=== PATIENT | female | born 1985 | race African-American/Black ===

== ENCOUNTER 2016-08-24 14:00 | Emergency (ER) | payer SELFPAY ==
[~2016-08-24 14:00] MED LIST: HYDR25TA PO
== END 2016-08-24 16:04 | disposition left against medical advice (07) ==
LOC: EMS 14:00
DX: M79.671 Pain in right foot (principal); Z53.21 Procedure and treatment not carried out due to patient leaving prior to being seen by health care provider

== ENCOUNTER 2016-08-24 22:48 | Emergency (ER) | payer SELFPAY ==
[~2016-08-24] VITALS: Ht 162.6 cm; Wt 87.3 kg
[2016-08-25] MEDS ORDERED: IBUPROFEN 600 MG TABLET PO ONE (00:15)
[2016-08-25] MEDS ORDERED: ACETAMINOPHEN/CODEINE 300-30 MG TABLET PO ONE (00:15)
[2016-08-25 00:22] VITALS: BP 124/89
== END 2016-08-25 00:30 | disposition home or self-care (01) ==
LOC: EMS 22:49
DX: S93.402A Sprain of unspecified ligament of left ankle, initial encounter (principal); I10 Essential (primary) hypertension; Z88.2 Allergy status to sulfonamides; W50.2XXA Accidental twist by another person, initial encounter; Y93.89 Activity, other specified; Y92.89 Other specified places as the place of occurrence of the external cause; Y99.8 Other external cause status
CPT/HCPCS: 29540; 99284

== ENCOUNTER 2018-09-25 00:31 | Emergency (ER) | payer MEDICAID ==
[~2018-09-25] VITALS: Ht 165.1 cm; Wt 90.9 kg
[2018-09-25] MEDS ORDERED: KETOROLAC TROMETHAMINE 60 MG/2 ML VIAL IM ONE (01:30)
[2018-09-25 02:52] VITALS: BP 145/67
== END 2018-09-25 02:54 | disposition home or self-care (01) ==
LOC: EMS 00:34
DX: S03.42XA Sprain of jaw, left side, initial encounter (principal); S20.211A Contusion of right front wall of thorax, initial encounter; I10 Essential (primary) hypertension; F17.210 Nicotine dependence, cigarettes, uncomplicated; F12.90 Cannabis use, unspecified, uncomplicated; Z88.2 Allergy status to sulfonamides; Y04.0XXA Assault by unarmed brawl or fight, initial encounter; Y93.89 Activity, other specified; Y92.89 Other specified places as the place of occurrence of the external cause; Y99.8 Other external cause status
CPT/HCPCS: 70450; 70486; 71101; 81025; 96372; 99284; J1885

== ENCOUNTER 2018-12-03 04:12 | Emergency (ER) | payer MEDICAID ==
[~2018-12-03] VITALS: Ht 165.1 cm; Wt 95.5 kg
[2018-12-03 04:23] VITALS: BP 150/82
== END 2018-12-03 06:03 | disposition left against medical advice (07) ==
LOC: EMS 04:13
DX: H53.8 Other visual disturbances (principal); Z53.21 Procedure and treatment not carried out due to patient leaving prior to being seen by health care provider

== ENCOUNTER 2019-03-15 22:47 | Emergency (ER) | payer SELFPAY ==
[~2019-03-15] VITALS: Ht 165.1 cm; Wt 95.9 kg
[2019-03-16] MEDS ORDERED: PredniSONE 20 MG TABLET PO ONE (00:15)
[2019-03-16] MEDS ORDERED: AZITHROMYCIN 250 MG TABLET PO ONE (00:15)
[2019-03-16] MEDS ORDERED: IPRATROPIUM BROMIDE 0.5 MG/2.5 ML NEB SOLUTION NEB ONE (00:15)
[2019-03-16] MEDS ORDERED: ALBUTEROL SULFATE 2.5 MG/0.5 ML NEB SOLUTION NEB ONE (00:15)
[2019-03-16] MEDS ORDERED: ALBUTEROL SULFATE 5 MG/ML 20 ML NEB SOLN [BULK] NEB ONE (01:15)
[2019-03-16] MEDS ORDERED: 0.9% SODIUM CHLORIDE 15 ML NEB SOLUTION NEB ONE (01:32)
[2019-03-16] MEDS ORDERED: CloNIDine HCL 0.2 MG TABLET PO ONE (02:00)
[2019-03-16 02:26] VITALS: BP 144/93
== END 2019-03-16 02:32 | disposition home or self-care (01) ==
LOC: EMS 22:49
DX: J98.01 Acute bronchospasm (principal); F41.9 Anxiety disorder, unspecified; F32.9 Major depressive disorder, single episode, unspecified; I10 Essential (primary) hypertension; F17.210 Nicotine dependence, cigarettes, uncomplicated; F12.90 Cannabis use, unspecified, uncomplicated; Z88.1 Allergy status to other antibiotic agents
CPT/HCPCS: 94640; 94644; 99285; J7512

== ENCOUNTER 2020-06-23 13:43 | Emergency (ER) | payer MEDICAID ==
[~2020-06-23] VITALS: Ht 167.6 cm; Wt 95.5 kg
[2020-06-23] MEDS ORDERED: LISI-894 PO (13:49)
[2020-06-23] MEDS ORDERED: ONDANSETRON HCL 4 MG/2 ML VIAL IVP ONE ×2 (14:45)
[2020-06-23] MEDS ORDERED: SODIUM CHLORIDE 0.9% 1,000 ML IV ONE (14:45)
[2020-06-23] MEDS ORDERED: MORPHINE SULFATE 4 MG/ML SYRINGE IVP ONE (14:45)
[2020-06-23 15:31] LABS: BASOPHILS % (AUTO) 0.9 % (0.0-2.0); EOSINOPHILS % (AUTO) 2.7 % (1.0-6.0); HEMOGLOBIN 8.3 g/dL (12.0-16.0); LYMPHOCYTES # (AUTO) 1.4 K/uL (1.0-4.8); LYMPHOCYTES % (AUTO) 21.5 % (22.0-44.0); MEAN CORPUSCULAR HEMOGLOBIN 18.3 pg (26.0-34.0); MEAN CORPUSCULAR HGB CONC 28.8 G/dL (31.0-37.0); MEAN CORPUSCULAR VOLUME 63 fL (80-100); MONOCYTES # (AUTO) 0.4 K/uL (0.1-1.0); MONOCYTES % (AUTO) 5.6 % (2.0-9.0); NEUTROPHILS # (AUTO) 4.6 K/uL (1.8-7.7); NEUTROPHILS % (AUTO) 69.3 % (40.0-70.0); PLATELET COUNT (AUTO) 371 K/uL (150-450); RED BLOOD CELL COUNT(AUTO) 4.57 MIL/uL (4.00-5.20)
[2020-06-23 15:41] LABS: ANION GAP 8 mmol/L (8-16); CALCIUM, TOTAL 8.7 mg/dL (8.8-10.5); CARBON DIOXIDE 27 mmol/L (22-29); CHLORIDE 103 mmol/L (98-107); CREATININE 0.69 mg/dL (0.60-1.30); GLOMERULAR FILTR. RATE CALC > 60 mL/min (>60); GLUCOSE,RANDOM 81 mg/dL (70-110); POTASSIUM 4.1 mmol/L (3.5-5.1); SODIUM SERUM 138 mmol/L (136-145); UREA NITROGEN, BLOOD 14 mg/dL (7-18)
[2020-06-23 15:51] LABS: ALANINE AMINOTRANSFERASE 26 U/L (12-78); ALBUMIN 3.6 g/dL (3.4-5.0); ALKALINE PHOSPHATASE 42 U/L (46-116); ASPARTATE AMINOTRANSFERASE 19 U/L (15-37); BILIRUBIN,TOTAL 0.5 mg/dL (0.1-1.0); HCG,QUANTITATIVE < 1 mIU/mL (0-6); LIPASE 65 U/L (73-393); TOTAL PROTEIN, SERUM 7.9 g/dL (6.4-8.2)
[2020-06-23 17:46] LABS: COVID AG,FIA SOURCE NASOPHARYNGEAL
[2020-06-23 17:55] LABS: APPEARANCE,URINE CLOUDY (CLEAR); BILIRUBIN,URINE NEGATIVE (NEGATIVE); GLUCOSE, URINE (UA) NEGATIVE (NEGATIVE); KETONES,URINE NEGATIVE (NEGATIVE); LEUKOCYTE ESTERASE ,URINE SMALL (NEGATIVE); NITRATE,URINE NEGATIVE (NEGATIVE); OCCULT BLOOD,URINE NEGATIVE (NEGATIVE); PROTEIN,URINE NEGATIVE (NEGATIVE); UROBILINOGEN,URINE 0.2 mg/dL (<=1.0)
[2020-06-23 18:17] LABS: BACTERIA,URINE Few /HPF (None Seen); RBC,URINE None Seen /HPF (0-2); WBC,URINE 26-50 /HPF (0-5)
[2020-06-23 18:18] LABS: SQUAMOUS EPITHELIAL CELL,UR Moderate /LPF (None Seen)
[2020-06-23] MEDS ORDERED: DOXYCYCLINE HYCLATE 100 MG TABLET PO ONE (19:00)
[2020-06-23 21:30] VITALS: BP 140/90
== END 2020-06-23 21:35 | disposition home or self-care (01) ==
LOC: EMS 13:45
DX: J18.9 Pneumonia, unspecified organism (principal); N39.0 Urinary tract infection, site not specified; Z20.822 Contact with and (suspected) exposure to COVID-19
CPT/HCPCS: 36415; 71045; 74176; 80053; 81001; 83690; 83880; 84702; 84703; 85025; 87086; 87426; 96361; 96374; 96375; 99285; J2270; J2405; J7030; U0003

== ENCOUNTER 2021-09-27 03:43 | Emergency (ER) | payer MEDICAID, OTHER ==
[~2021-09-27] VITALS: Ht 167.6 cm; Wt 88.6 kg
[~2021-09-27 03:43] MED LIST changes: -HYDR25TA PO; +LISI-894 PO
[2021-09-27 04:10] VITALS: BP 139/74
[2021-09-27] MEDS ORDERED: CEPH-558 PO ×2 (04:18→04:39)
[2021-09-27] MEDS ORDERED: ACET-66 PO ×2 (04:18→04:39)
[2021-09-27] MEDS ORDERED: DOXY-354 PO ×2 (04:18→04:39)
[2021-09-27] MEDS ORDERED: ACETAMINOPHEN 500 MG TABLET PO ONE (04:30)
[2021-09-27] MEDS ORDERED: CEPHALEXIN MONOHYDRATE 500 MG CAPSULE PO ONE (04:30)
[2021-09-27] MEDS ORDERED: DOXYCYCLINE HYCLATE 100 MG TABLET PO ONE (04:30)
== END 2021-09-27 05:45 | disposition home or self-care (01) ==
LOC: EMS 03:44
DX: L03.116 Cellulitis of left lower limb (principal); L03.115 Cellulitis of right lower limb; S80.862A Insect bite (nonvenomous), left lower leg, initial encounter; S80.861A Insect bite (nonvenomous), right lower leg, initial encounter; F41.9 Anxiety disorder, unspecified; J45.909 Unspecified asthma, uncomplicated; F32.A Depression, unspecified; I10 Essential (primary) hypertension; F17.210 Nicotine dependence, cigarettes, uncomplicated; F12.90 Cannabis use, unspecified, uncomplicated; Z87.09 Personal history of other diseases of the respiratory system; Z87.442 Personal history of urinary calculi; Z98.890 Other specified postprocedural states; Z88.2 Allergy status to sulfonamides; W57.XXXA Bitten or stung by nonvenomous insect and other nonvenomous arthropods, initial encounter; Y93.89 Activity, other specified; Y92.89 Other specified places as the place of occurrence of the external cause; Y99.8 Other external cause status
CPT/HCPCS: 99284; Z7502; Z7610

== ENCOUNTER 2024-01-30 20:06 | Emergency (ER) | payer OTHER ==
[~2024-01-30] VITALS: Ht 165.1 cm; Wt 90.9 kg
[~2024-01-30 20:06] MED LIST changes: +ACET-66 PO; +CEPH-558 PO; +DOXY-354 PO
[2024-01-30 20:43] VITALS: TEMP 97.9
[2024-01-30 23:01] VITALS: BP 170/100; PULSE 83; RESP 20; O2SAT 96
[2024-01-30] MEDS ORDERED: HYDR-4072 PO (23:47)
[2024-01-30] MEDS ORDERED: METH-659 PO (23:47)
[2024-01-30] MEDS ORDERED: IBUP-1554 PO (23:47)
[2024-01-30] MEDS: ACETAMINOPHEN 500 MG TABLET PO ONE (23:52)
[2024-01-30] MEDS: METHOCARBAMOL 500 MG TABLET PO ONE (23:52)
[2024-01-30] MEDS: IBUPROFEN 600 MG TABLET PO ONE (23:52)
== END 2024-01-31 00:02 | disposition home or self-care (01) ==
LOC: EMS 20:06
DX: S39.012A Strain of muscle, fascia and tendon of lower back, initial encounter (principal); J45.909 Unspecified asthma, uncomplicated; I10 Essential (primary) hypertension; F17.210 Nicotine dependence, cigarettes, uncomplicated; F12.90 Cannabis use, unspecified, uncomplicated; Z88.2 Allergy status to sulfonamides; Z87.442 Personal history of urinary calculi; Z79.899 Other long term (current) drug therapy; X50.1XXA Overexertion from prolonged static or awkward postures, initial encounter; Y93.89 Activity, other specified; Y92.89 Other specified places as the place of occurrence of the external cause; Y99.0 Civilian activity done for income or pay
CPT/HCPCS: 72100; 99284; Z7502; Z7610

== ENCOUNTER → 2024-05-25 | Emergency (ER) | payer OTHER ==
[~2024-05-25] VITALS: Ht 165.1 cm; Wt 9.2 kg
[~2024-05-25] MED LIST changes: +HYDR-4072 PO; +IBUP-1554 PO; +METH-659 PO
[2024-05-25 18:26] VITALS: BP 146/92; PULSE 67; RESP 18; TEMP 98.3; O2SAT 98
[2024-05-25] MEDS: ACETAMINOPHEN 500 MG TABLET PO ONE (19:01)
[2024-05-25] MEDS: IBUPROFEN 600 MG TABLET PO ONE (19:01)
== END | disposition home or self-care (01) ==
LOC: EMS 18:00
DX: S60.211A Contusion of right wrist, initial encounter (principal); J45.909 Unspecified asthma, uncomplicated; I10 Essential (primary) hypertension; F12.90 Cannabis use, unspecified, uncomplicated; Z88.2 Allergy status to sulfonamides; Z87.442 Personal history of urinary calculi; Z79.899 Other long term (current) drug therapy; W22.8XXA Striking against or struck by other objects, initial encounter; Y93.89 Activity, other specified; Y92.89 Other specified places as the place of occurrence of the external cause; Y99.0 Civilian activity done for income or pay
CPT/HCPCS: 99283

== ENCOUNTER 2024-09-30 15:23 | Emergency (ER) | payer OTHER ==
[~2024-09-30] VITALS: Ht 165.1 cm; Wt 90.9 kg
[~2024-09-30 15:23] MED LIST changes: -ACET-66 PO; -CEPH-558 PO; -DOXY-354 PO
[2024-09-30 15:27] VITALS: TEMP 98.2
[2024-09-30] MEDS ORDERED: 0.9% SODIUM CHLORIDE 10 ML SYRINGE IVP ONE (15:48)
[2024-09-30] MEDS ORDERED: IOHEXOL 350 MG/ML 100 ML VIAL ONE (15:48)
[2024-09-30] MEDS ORDERED: SODIUM CHLORIDE 0.9% 100 ML ONE (15:48)
[2024-09-30 16:13] LABS: BASOPHILS % (AUTO) 1.7 % (0.0-2.0); EOSINOPHILS % (AUTO) 6.7 % (1.0-6.0); HEMATOCRIT 31.1 % (36-46); HEMOGLOBIN 8.9 g/dL (12.0-16.0); LYMPHOCYTES # (AUTO) 1.4 K/uL (1.0-4.8); MEAN CORPUSCULAR HEMOGLOBIN 18.4 pg (26.0-34.0); MEAN CORPUSCULAR HGB CONC 28.5 G/dL (31.0-37.0); MEAN CORPUSCULAR VOLUME 64 fL (80-100); MONOCYTES # (AUTO) 0.3 K/uL (0.1-1.0); MONOCYTES % (AUTO) 7.2 % (2.0-9.0); NEUTROPHILS # (AUTO) 1.6 K/uL (1.8-7.7); NEUTROPHILS % (AUTO) 45.4 % (40.0-70.0); PLATELET COUNT (AUTO) 361 K/uL (150-450); RED BLOOD CELL COUNT(AUTO) 4.83 MIL/uL (4.00-5.20); RED CELL DISTRIBUTION WIDTH 20.1 % (11.5-14.5); WHITE BLOOD COUNT (AUTO) 3.5 K/uL (4.5-11.0)
[2024-09-30 16:21] LABS: ANION GAP 7 mmol/L (8-16); CALCIUM, TOTAL 9.1 mg/dL (8.8-10.5); CARBON DIOXIDE 26 mmol/L (22-29); CHLORIDE 102 mmol/L (98-107); CREATININE 0.82 mg/dL (0.60-1.30); GLOMERULAR FILTR. RATE CALC > 60 mL/min (>60); GLUCOSE,RANDOM 88 mg/dL (70-110); POTASSIUM 3.6 mmol/L (3.5-5.1); SODIUM SERUM 135 mmol/L (136-145); UREA NITROGEN, BLOOD 13 mg/dL (7-18)
[2024-09-30 16:22] LABS: PROTHROMBIN TIME 10.5 SEC (9.4-11.6)
[2024-09-30 16:26] LABS: ALANINE AMINOTRANSFERASE 23 U/L (12-78); ALBUMIN 3.8 g/dL (3.4-5.0); ALKALINE PHOSPHATASE 59 U/L (46-116); ASPARTATE AMINOTRANSFERASE 32 U/L (15-37); BILIRUBIN,TOTAL 0.4 mg/dL (0.1-1.0); CHOL/HDL RATIO 1.6 (3.9-5.7); CHOLESTEROL 164 mg/dL (131-200); HDL CHOLESTEROL 102 mg/dL (40-60); LDL CHOL (CALC.) 57 mg/dL (0-130); TOTAL PROTEIN, SERUM 7.8 g/dL (6.4-8.2); TRIGLYCERIDES 23 mg/dL (15-150)
[2024-09-30 16:27] LABS: HEMOGLOBIN A1C 5.1 % (3.8-5.6)
[2024-09-30 16:28] LABS: TROPONIN I-HIGH SENSITIVITY 26 ng/L (<51)
[2024-09-30 16:36] LABS: RBC MORPHOLOGY COMMENT ABNORMAL RBC MORPH
[2024-09-30 16:45] VITALS: BP 160/100; PULSE 81; RESP 16; O2SAT 100
[2024-09-30 17:10] LABS: GLUCOMETER DEV NAME(LOC) ERT.7; GLUCOSE,POINT OF CARE 86 MG/DL (70-110)
[2024-09-30] MEDS: lisinopriL 10 MG TABLET PO ONE (17:50)
== END 2024-09-30 19:17 | disposition home or self-care (01) ==
LOC: EMS 15:23
DX: R20.2 Paresthesia of skin (principal); I10 Essential (primary) hypertension; J45.909 Unspecified asthma, uncomplicated; F41.9 Anxiety disorder, unspecified; F32.9 Major depressive disorder, single episode, unspecified; F12.90 Cannabis use, unspecified, uncomplicated; F17.210 Nicotine dependence, cigarettes, uncomplicated; Z88.2 Allergy status to sulfonamides; Z87.442 Personal history of urinary calculi; Z98.890 Other specified postprocedural states; Z79.899 Other long term (current) drug therapy
CPT/HCPCS: 99285; 70496; 71045; 80061; 80053; 82962; 83036; 84484; 85025; 85610; 85730; 36415; 70498; 82948; 93005; 70450; Q9967; J7050